=== PATIENT | female | born 1960 | race Caucasian/White ===

== ENCOUNTER → 2017-02-09 | Outpatient (CLI) | payer OTHER | LOC: RAD 02-04 02:23 | DX: Z12.31 Encounter for screening mammogram for malignant neoplasm of breast (principal); N63 Unspecified lump in breast ==

== ENCOUNTER → 2017-02-18 | Outpatient (CLI) | payer OTHER | LOC: ULTRA 03:07 | DX: N63 Unspecified lump in breast (principal) ==

== ENCOUNTER → 2019-05-07 | Outpatient (CLI) | payer OTHER | LOC: RAD 03:01 | DX: Z12.31 Encounter for screening mammogram for malignant neoplasm of breast (principal) ==

== ENCOUNTER → 2020-06-18 | Outpatient (CLI) | payer OTHER | LOC: BC 06-17 10:25 | PROVIDERS: ATTEND Family Medicine | DX: Z12.31 Encounter for screening mammogram for malignant neoplasm of breast (principal) ==